=== PATIENT | male | born 1975 | race Caucasian/White ===

== ENCOUNTER 2020-06-26 11:26 | Observation (INO) ==
[2020-06-26] MEDS ORDERED: Dexamethasone 4 MG/ML VIAL IVP ONE (11:36)
[2020-06-26] MEDS ORDERED: Ipratropium/Albuterol Neb 3 ML IH ONE (11:36)
[2020-06-26 12:28] LABS: Basophils # 0.2 K/mcL (0.0-0.2); Hematocrit 44.3 % (37.5-50.1); Hemoglobin 14.4 g/dL (12.9-16.9); Immature Granulocytes % 0.8 % (0-4); Lymphocytes # 1.4 K/mcL (0.6-4.6); Lymphocytes % 8.5 %; Mean Corpuscular HGB Conc 32.5 g/dL (31.6-35.5); Mean Corpuscular Hemoglobin 30.3 pg (28.0-33.3); Mean Corpuscular Volume 93.1 fL (83.0-100.0); Mean Platelet Volume 10.8 fL (9.4-12.4); Monocytes # 1.2 K/mcL (0.0-1.3); Monocytes % 7.7 %; Neutrophils # 12.3 K/mcL (1.6-8.9); Platelet Count 287 K/mcL (140-400); Red Blood Count 4.76 M/mcL (4.19-5.50); Red Cell Distribution Width 12.6 % (11.5-14.5); White Blood Count 16.2 K/mcL (4.3-11.1)
[2020-06-26 13:02] LABS: Troponin I 0.04 ng/mL (< 0.04)
[2020-06-26 13:13] LABS: BUN/Creatinine Ratio 13 (6-26); Blood Urea Nitrogen 12 mg/dL (6-20); Carbon Dioxide 24 mEq/L (23-29); Chloride 103 mEq/L (98-107); Glucose 112 mg/dL (70-105); Osmolality,Calculated 287 (280-300); Potassium 4.1 mEq/L (3.5-5.1); Sodium 138 mEq/L (136-145); eGFR For African Americans > 60 (> 60); eGFR For Non-African Americans > 60 (> 60)
[2020-06-26] MEDS ORDERED: Azithromycin 500 MG in 0.9 % Sodium Chloride 250 ML IVPB ONE (13:25)
[2020-06-26] MEDS ORDERED: Aspirin 325 MG TABLET PO ONE (13:40)
[2020-06-26] MEDS ORDERED: Acetaminophen 325 MG TABLET PO ONE (14:19)
[2020-06-26] MEDS ORDERED: Naloxone 0.4 MG/ML INJ IVP PRN (15:05)
[2020-06-26] MEDS ORDERED: Perflutren Lipid Microsphere 1.3 ML in 0.9 % Sodium Chloride 8.7 ML IVP PRN (15:08)
[2020-06-26] MEDS ORDERED: Ondansetron 4 MG/2 ML VIAL IVP ONE (15:45)
[2020-06-26] MEDS ORDERED: Ketorolac 15 MG/ML VIAL IVP ONE (15:46)
[2020-06-26 15:47] VITALS: BP 114/80
[2020-06-26] MEDS: Ipratropium/Albuterol Neb 3 ML IH SCH (16:03)
[2020-06-26] MEDS ORDERED: Acetaminophen 325 MG TABLET PO PRN (17:50)
[2020-06-26] MEDS ORDERED: *HR* Heparin 5,000 UNIT/ML VIAL SQ SCH (18:00)
[2020-06-26] MEDS ORDERED: *HR* Midazolam HCl 5 MG/5 ML VIAL IVP ONE (19:09)
[2020-06-26] MEDS ORDERED: *HR* Propofol 200 MG/20 ML VIAL IVP ONE (19:09)
[2020-06-26] MEDS ORDERED: EPINEPHrine 1 MG/ML VIAL IV ONE (19:09)
[2020-06-26] MEDS ORDERED: *HR* Rocuronium Bromide 50 MG/5 ML VIAL IVP ONE (19:09)
[2020-06-26] MEDS ORDERED: *HR* EPINEPHrine 1 MG/10 ML SYRINGE IVP ONE (19:09)
[2020-06-26] MEDS ORDERED: MethylPREDNISolone 40 MG/ML VIAL IVP SCH (21:00)
[2020-06-27] MEDS: Ipratropium/Albuterol Neb 3 ML IH SCH (00:16)
[2020-06-27] MEDS ORDERED: Azithromycin 500 MG in 0.9 % Sodium Chloride 250 ML IVPB SCH (16:00)
== END 2020-06-26 19:10 | disposition expired ==
LOC: EMEROOARM 11:26 → 3ANU 11:26
PROVIDERS: ADMIT Internal Medicine; ATTEND Internal Medicine